=== PATIENT | female | born 1960 | race Caucasian/White ===

== ENCOUNTER → 2017-04-20 | Outpatient (CLI) | payer OTHER ==
[~2017-04-20] MED LIST: IBUP600 PO; LEVSOD100 PO; [UNRECOGNIZED DRUG - OTHER] TOP
== END ==
LOC: PLD 08:16
DX: N95.0 Postmenopausal bleeding (principal)
CPT/HCPCS: 88305

== ENCOUNTER → 2018-11-05 | Outpatient (CLI) | payer OTHER | END | disposition home or self-care (01) | LOC: LAB SHORT 15:00 → LAB 15:00 | DX: N39.0 Urinary tract infection, site not specified (principal) | CPT/HCPCS: 87086 ==

== ENCOUNTER → 2019-01-27 | Outpatient (CLI) | payer OTHER ==
[~2019-01-27] MED LIST changes: +ALPR.5 PO; +Citalopram HBr10 MG PO; +OXYC5 PO
[2019-01-27 13:52] LABS: BASOPHILS ABSOLUTE AUTO 0.05 K/mm3 (0.00-0.23); BASOPHILS PERCENT AUTO 1 % (0-2); EOSINOPHILS ABSOLUTE AUTO 0.27 K/mm3 (0.00-0.68); EOSINOPHILS PERCENT AUTO 4 % (0-6); Hematocrit 43.4 % (33.0-51.0); Hemoglobin 14.5 g/dL (11.5-16.0); IMMATURE GRAN ABSOLUTE AUTO 0.01 K/mm3 (0.00-0.10); IMMATURE GRAN PERCENT AUTO 0 % (0-1); LYMPHOCYTES ABSOLUTE AUTO 2.57 K/mm3 (0.84-5.20); LYMPHOCYTES PERCENT AUTO 38 % (21-46); MONOCYTES ABSOLUTE AUTO 0.46 K/mm3 (0.16-1.47); MONOCYTES PERCENT AUTO 7 % (4-13); Mean Corpuscular HGB 29.2 pg (26.0-34.0); Mean Corpuscular HGB Conc 33.4 g/dL (31.5-36.5); Mean Corpuscular Volume 87 fL (80-100); Mean Platelet Volume 10.6 fL (9.1-12.4); NEUTROPHILS ABSOLUTE AUTO 3.49 K/mm3 (1.96-9.15); NEUTROPHILS PERCENT AUTO 51 % (41-73); Platelet Count 257 K/mm3 (150-400); RDW Coefficient Variation 13.1 % (11.7-14.2); RDW Standard Deviation 41.4 fL (35.1-46.3); Red Blood Cell Count 4.97 M/mm3 (3.80-5.20); White Blood Cell Count 6.85 K/mm3 (4.00-11.30)
[2019-01-27 14:03] LABS: Alanine Aminotransfer (ALT/SGP 35 U/L (12-78); Albumin, Blood 4.2 g/dL (3.4-5.0); Alk Phos 100 U/L (40-126); Anion Gap 11 mmol/L (6-16); Aspartate Aminotrans (AST/SGOT 30 U/L (12-37); Bilirubin, Total 0.3 mg/dL (0.1-1.0); Blood Urea Nitrogen 12 mg/dL (8-24); CO2, Blood 26 mmol/L (21-32); Calcium, Blood 9.4 mg/dL (8.5-10.1); Chloride, Blood 104 mmol/L (98-108); Creatinine, Blood 0.86 mg/dL (0.40-1.00); Globulin, Blood 4.2 g/dL (2.2-4.0); Glomerular Filtration Rate >60 (60-); Glucose, Blood 92 mg/dL (70-99); Potassium, Blood 4.5 mmol/L (3.5-5.5); Sodium, Blood 141 mmol/L (136-145); Total Protein, Blood 8.4 g/dL (6.4-8.2)
== END | disposition home or self-care (01) ==
LOC: LAB SHORT 13:48 → LAB EV 13:48
PROVIDERS: General Practice
DX: D25.9 Leiomyoma of uterus, unspecified (principal)
CPT/HCPCS: 80053; 83690; 85025

== ENCOUNTER 2020-04-18 13:48 | Observation (INO) | payer BC ==
[~2020-04-18] VITALS: Ht 157.5 cm; Wt 75.8 kg
[~2020-04-18 13:48] MED LIST changes: -Citalopram HBr10 MG PO; -LEVSOD100 PO
[2020-04-18 14:26] LABS: BASOPHILS ABSOLUTE AUTO 0.05 K/mm3 (0.00-0.23); BASOPHILS PERCENT AUTO 0 % (0-2); EOSINOPHILS ABSOLUTE AUTO 0.02 K/mm3 (0.00-0.68); EOSINOPHILS PERCENT AUTO 0 % (0-6); Hematocrit 39.8 % (33.0-51.0); Hemoglobin 13.3 g/dL (11.5-16.0); IMMATURE GRAN ABSOLUTE AUTO 0.06 K/mm3 (0.00-0.10); IMMATURE GRAN PERCENT AUTO 0 % (0-1); LYMPHOCYTES ABSOLUTE AUTO 0.86 K/mm3 (0.84-5.20); LYMPHOCYTES PERCENT AUTO 6 % (21-46); MONOCYTES ABSOLUTE AUTO 0.59 K/mm3 (0.16-1.47); MONOCYTES PERCENT AUTO 4 % (4-13); Mean Corpuscular HGB 28.9 pg (26.0-34.0); Mean Corpuscular HGB Conc 33.4 g/dL (31.5-36.5); Mean Corpuscular Volume 86 fL (80-100); Mean Platelet Volume 10.5 fL (9.1-12.4); NEUTROPHILS ABSOLUTE AUTO 14.15 K/mm3 (1.96-9.15); NEUTROPHILS PERCENT AUTO 90 % (41-73); NRBC ABSOLUTE 0.02 K/mm3 (0.00-0.02); NRBC Auto 0.1 /100 WBC (0.0-0.2); Platelet Count 222 K/mm3 (150-400); RDW Coefficient Variation 13.5 % (11.7-14.2); RDW Standard Deviation 42.1 fL (35.1-46.3); Red Blood Cell Count 4.61 M/mm3 (3.80-5.20); White Blood Cell Count 15.73 K/mm3 (4.00-11.30)
[2020-04-18 14:44] LABS: Alanine Aminotransfer (ALT/SGP 25 U/L (12-78); Albumin/Globulin Ratio 1.2 (0.8-1.8); Alk Phos 75 U/L (50-136); Anion Gap 9 mmol/L (6-16); Aspartate Aminotrans (AST/SGOT 16 U/L (12-37); Bilirubin, Total 0.5 mg/dL (0.1-1.0); Blood Urea Nitrogen 15 mg/dL (8-24); Bun/Creatinine Ratio 22.9 (12.0-20.0); CO2, Blood 23 mmol/L (21-32); Calcium, Blood 9.9 mg/dL (8.5-10.1); Chloride, Blood 105 mmol/L (98-108); Creatinine, Blood 0.65 mg/dL (0.40-1.00); Globulin, Blood 3.4 g/dL (2.2-4.0); Glomerular Filtration Rate >60 (60-); Glucose, Blood 117 mg/dL (70-99); Potassium, Blood 3.9 mmol/L (3.5-5.5); Sodium, Blood 137 mmol/L (136-145); Total Protein, Blood 7.4 g/dL (6.4-8.2)
[2020-04-18 15:27] LABS: Source, Urine Clean Catch
[2020-04-18 15:34] LABS: Appearance, Urine Clear (Clear); Bilirubin, Urine Neg (Neg); Blood, Urine 1+ (Neg); Color, Urine Yellow (P-Yellow); Glucose Qualitative, Urine Neg (Neg); Ketones, Urine 3+ (Neg); Leukocyte Esterase, Urine 2+ (Neg); Nitrite, Urine Neg (Neg); Protein, Urine Neg (Neg); Specific Gravity, Urine 1.015 (1.003-1.022); Urobilinogen, Urine NORM (Normal); pH, Urine 6.5 (5.0-8.0)
[2020-04-18 15:45] LABS: Bacteria Mod /hpf; Calcium Oxalate Crystals Rare /hpf; Mucus Light (0-Heavy); Red Blood Cells, Urine 0-2 /hpf (0-2); Squamous Epithelial Cells Mod /hpf (Few)
[2020-04-18] MEDS ORDERED: CITA20 PO (17:01)
[2020-04-18] MEDS ORDERED: MONT10T PO (17:45)
[2020-04-18] MEDS ORDERED: EUTHYROX88 MCG PO (17:45)
[2020-04-18 18:49] LABS: Influenza A, PCR Negative (NEGATIVE); Influenza B, PCR Negative (NEGATIVE); Resp Syncytial Virus, PCR Negative (NEGATIVE); SARS-Cov-2 (COVID-19) PCR, MMC Negative (NEGATIVE)
--- NOTE | 2020-04-18 19:47 | NUR ---
PT ARRIVED FROM ED AT 1920. PT ALERT AND ORIENTED X4 IN ROOM. INDEPENDENT. REPORTS PAIN ON RLQ 07/11. COMFORTABLE IN BED. PT DENIES NAUSEA AND VOMITING. PT DENIES CHEST PAIN, SOB, NUMBNESS AND TINGLING. LAST BM THIS MORNING. PT ORIENTED TO ROOM. CALL LIGHT WITHIN REACH.
--- NOTE | 2020-04-19 10:23 | NUR ---
SURGERY TIME BUMPED. PATIENT BACK IN ROOM. MEDICATED FOR PAIN AND NAUSEA PER EMAR. CALL LIGHT WITHIN PATIENT REACH.
--- NOTE | 2020-04-19 12:17 | NUR ---
Patient to OR
--- NOTE | 2020-04-19 14:42 | NUR ---
Patient back in room 214 from PACU. Incisions CDI. Patient tolerating sips of clear liquid. Patient denies nausea/pain at this time. VSS. Spouse at bedside. Call light within patient reach.
[2020-04-19] MEDS ORDERED: Norco 5-325 Ta1 EACH PO (16:50)
--- NOTE | 2020-04-19 17:10 | NUR ---
Discharge summary Patient discharged home. IV out. Discharge instructions given, explained and signed. Prescription for Morrison given to patient. Patient denied questions or concerns. Follow up with general surgery.
--- NOTE | 2020-04-19 17:20 | NUR ---
Prescription for Augmentin faxed to [facility] pharmacy.
== END 2020-04-19 17:00 | disposition home or self-care (01) ==
LOC: ER 13:48 → SURS 13:49
PROVIDERS: Physician Assistant; ADMIT Surgery
DX: K35.891 Other acute appendicitis without perforation, with gangrene (principal); D25.9 Leiomyoma of uterus, unspecified; E03.9 Hypothyroidism, unspecified; E78.5 Hyperlipidemia, unspecified; G43.909 Migraine, unspecified, not intractable, without status migrainosus; F32.9 Major depressive disorder, single episode, unspecified; F41.9 Anxiety disorder, unspecified; J30.2 Other seasonal allergic rhinitis; E66.9 Obesity, unspecified; Z68.30 Body mass index [BMI] 30.0-30.9, adult; Z79.899 Other long term (current) drug therapy; Z88.2 Allergy status to sulfonamides; Z23 Encounter for immunization; Z20.822 Contact with and (suspected) exposure to COVID-19
CPT/HCPCS: 0241U; 36415; 74176; 80053; 81001; 83690; 85025; 87086; 88304; 96365; 96366; 96375; 96376; 99285-25; A9270; G0008; G0378; J0295; J1100; J1170; J1885; J2250; J2270; J2370; J2405; J2704; J3010; J7030; J7120; Q2038

== ENCOUNTER 2022-01-20 11:33 | Inpatient (IN) | payer OTHER ==
[~2022-01-20] VITALS: Ht 157.5 cm; Wt 83.0 kg
[~2022-01-20 11:33] MED LIST changes: +CITA20 PO; +EUTHYROX88 MCG PO; +MONT10T PO; +Norco 5-325 Ta1 EACH PO
[2022-01-20] MEDS ORDERED: LEVSOD112 PO (12:17)
[2022-01-20] MEDS ORDERED: ALPR1 PO (12:18)
[2022-01-20] MEDS ORDERED: VITAMIN B COMP0.4 MG PO (12:19)
[2022-01-20] MEDS ORDERED: VITAMIN D310 MC4 PO (12:20)
[2022-01-20] MEDS ORDERED: SLEEP AID PO (12:20)
--- NOTE | 2022-01-20 12:30 | NUR ---
Ambulatory in Day Surgery History, Chart, Medications and Allergies reviewed before start of procedure. Lungs clear T/O to Auscultation. Pre-Op teaching done. Pt verbalizes understanding. Patient States Post-Procedure ride home has been arranged with .
--- NOTE | 2022-01-20 19:54 | NUR ---
SHIFT SUMMARY PT A&OX4, VSS/RA, MASCORRO PATENT & DRAINING/OFF FLOOR. S/P LOLIS LAP HYSTER, INCISIONS WITH WOUND GLUE CDI. PAIN MANAGED WITH OXY 5 MG/TYLENOL AND TORADOL. AMB WITH 2 PP, UP TO CHAIR. REPORT PROVIDED TO KAY JIMENEZ.
[2022-01-21 05:02] LABS: BASOPHILS ABSOLUTE AUTO 0.02 K/mm3 (0.00-0.23); BASOPHILS PERCENT AUTO 0 % (0-2); EOSINOPHILS PERCENT AUTO 0 % (0-6); Hematocrit 34.9 % (33.0-51.0); Hemoglobin 11.4 g/dL (11.5-16.0); IMMATURE GRAN ABSOLUTE AUTO 0.04 K/mm3 (0.00-0.10); IMMATURE GRAN PERCENT AUTO 0 % (0-1); LYMPHOCYTES ABSOLUTE AUTO 0.87 K/mm3 (0.84-5.20); LYMPHOCYTES PERCENT AUTO 9 % (21-46); MONOCYTES ABSOLUTE AUTO 0.43 K/mm3 (0.16-1.47); MONOCYTES PERCENT AUTO 4 % (4-13); Mean Corpuscular HGB 28.2 pg (26.0-34.0); Mean Corpuscular HGB Conc 32.7 g/dL (31.5-36.5); Mean Corpuscular Volume 86 fL (80-100); Mean Platelet Volume 10.9 fL (9.1-12.4); NEUTROPHILS ABSOLUTE AUTO 8.93 K/mm3 (1.96-9.15); NEUTROPHILS PERCENT AUTO 87 % (41-73); Platelet Count 210 K/mm3 (150-400); RDW Coefficient Variation 13.3 % (11.7-14.2); Red Blood Cell Count 4.04 M/mm3 (3.80-5.20); White Blood Cell Count 10.29 K/mm3 (4.00-11.30)
--- NOTE | 2022-01-21 06:05 | NUR ---
SHIFT SUMMARY: A&0X4. VERY PLEASANT. ABD BINDER REMAINS IN PLACE. MASCORRO REMOVED. VOIDING. TOLERATING PO FLUIDS AND FOOD. C/O MILD NAUSEA DURING THE SHIFT THAT WAS RESOLVED PER EMAR ORDERS. MARY PAD CHANGED DURING THE SHIFT AND HAD LIGHT TO MODERATE VAGINAL DRAINAGE EACH TIME. PT RESTING WITH CALL LIGHT IN REACH.
[2022-01-21] MEDS ORDERED: IBUP400 PO (10:59)
[2022-01-21] MEDS ORDERED: ESTRADIOL1 MG PO (10:59)
[2022-01-21] MEDS ORDERED: PROM25 PO (11:03)
[2022-01-21] MEDS ORDERED: Percocet 5-3251 EACH PO (11:03)
[2022-01-21] MEDS ORDERED: SIME80CH PO (11:04)
--- NOTE | 2022-01-21 15:09 | NUR ---
DISCHARGE SUMMARY PT A&OX4, VSS/RA, AMB INDEPENDENTLY IN ROOM, DRESSED SELF, UP TO CHAIR SINCE BREAKFAST, PAIN MANAGED WELL, SOME NAUSEA REP/TREATED PER EMAR ALTHOUGH ROYCE BREAKFAST WITH SLOW INTAKE, VOIDING WELL, IV DC'D. DC INS PROVIDED. PT REP UNDERSTANDING THOSE INSTRUCTIONS INCLUDING SCRIPT AT PHARMACY. LEFT VIA WC WITH DIRECTOR OF BUSINESS CONTINUITY, TO GO HOME WITH , WITH ALL PERSONAL POSSESSIONS INCLUDING DC PACKET.
== END 2022-01-21 11:45 | disposition home or self-care (01) | DRG 743 ==
LOC: ORSCMMR 11:33 → ORD 13:30 → ORSCMMR 13:30 → SURS 16:21 → ORSCMMR 22:58 → SURS 01-21 11:45
PROVIDERS: ADMIT Obstetrics & Gynecology
PROC: 0UT74ZZ Resection of Bilateral Fallopian Tubes, Percutaneous Endoscopic Approach (ICD-10-PCS; 2022-01-20)
PROC: 0UT24ZZ Resection of Bilateral Ovaries, Percutaneous Endoscopic Approach (ICD-10-PCS; 2022-01-20)
PROC: 8E0W4CZ Robotic Assisted Procedure of Trunk Region, Percutaneous Endoscopic Approach (ICD-10-PCS; 2022-01-20)
PROC: 0UT94ZZ Resection of Uterus, Percutaneous Endoscopic Approach (ICD-10-PCS; principal; 2022-01-20 13:30)
DX: D25.9 Leiomyoma of uterus, unspecified (principal); N95.0 Postmenopausal bleeding; R10.2 Pelvic and perineal pain; K21.9 Gastro-esophageal reflux disease without esophagitis; E78.5 Hyperlipidemia, unspecified; E03.9 Hypothyroidism, unspecified; M19.90 Unspecified osteoarthritis, unspecified site; G43.909 Migraine, unspecified, not intractable, without status migrainosus; F41.9 Anxiety disorder, unspecified; Z88.2 Allergy status to sulfonamides; Z79.899 Other long term (current) drug therapy
CPT/HCPCS: 36415; 85025; 88307; A9270; J0690; J1100; J1885; J2250; J2370; J2405; J2550; J2704; J2765; J2795; J3010; J7120

== ENCOUNTER → 2023-05-26 | Outpatient (CLI) | payer OTHER ==
[~2023-05-26] MED LIST changes: +ALPR1 PO; +ESTRADIOL1 MG PO; +IBUP400 PO; +LEVSOD112 PO; +PROM25 PO; +Percocet 5-3251 EACH PO; +SIME80CH PO; +SLEEP AID PO; +VITAMIN B COMP0.4 MG PO; +VITAMIN D310 MC4 PO
== END | disposition home or self-care (01) ==
LOC: LAB SHORT 16:09
DX: N39.0 Urinary tract infection, site not specified (principal)
CPT/HCPCS: 87086

== ENCOUNTER 2024-12-23 06:10 | Day surgery (SDC) | payer OTHER ==
[~2024-12-23] VITALS: Ht 157.5 cm; Wt 82.0 kg
[~2024-12-23 06:10] MED LIST changes: +OMEP20ER PO
[2024-12-23] MEDS ORDERED: Lidocaine 1%-Epineph 1:100000 20 ML MDV ONE (06:14)
[2024-12-23] MEDS ORDERED: Sodium Bicarb 8.4% 1 MEQ/ML 50 ML Vial ONE (06:20)
[2024-12-23] MEDS ORDERED: CLIMARA1 EACH TOP (06:41)
[2024-12-23] MEDS ORDERED: CeFAZolin Sodium 2,000 MG VIAL ONE (07:07)
--- NOTE | 2024-12-23 07:21 | NUR ---
12/23/[address] IN TO SEE PT. PRE OP BLOCK PLACED TO BILATERAL WRISTS W/LIDO 1 % W/EPI 1:100,000, PT TOLERATED WNL.
[2024-12-23 07:58] VITALS: BP 92/60
--- NOTE | 2024-12-23 08:44 | NUR ---
12/23/24 0844 Kaitlynn Valenzuela 0867 PT ARRIVED TO SDU VERY SLEEPY, SATS 90%. PT GIVEN TIME TO WAKE. ONCE OVER TO CHAIR AND SATS UP TO 99% AT 0915.
== END 2024-12-23 08:40 | disposition home or self-care (01) ==
LOC: ORSCSDS 06:10
PROVIDERS: Orthopaedic Surgery
PROC: 0JBG0ZX Excision of Right Lower Arm Subcutaneous Tissue and Fascia, Open Approach, Diagnostic (ICD-10-PCS; principal; 2024-12-23 07:30)
PROC: 01N54ZZ Release Median Nerve, Percutaneous Endoscopic Approach (ICD-10-PCS; principal; 2024-12-23 07:30)
DX: G56.03 Carpal tunnel syndrome, bilateral upper limbs (principal); M79.7 Fibromyalgia; K21.9 Gastro-esophageal reflux disease without esophagitis; E03.9 Hypothyroidism, unspecified; G62.9 Polyneuropathy, unspecified; Z79.899 Other long term (current) drug therapy; F41.0 Panic disorder [episodic paroxysmal anxiety]
CPT/HCPCS: 88304; 88313; J0690; J2704; J7120